=== PATIENT | male | born 1985 | race Caucasian/White ===

== ENCOUNTER → 2016-04-20 | Outpatient (CLI) | payer BC ==
[2016-04-20 12:44] LABS: ALT/SGPT 131 U/L (12-78); BLOOD UREA NITROGEN 15 mg/dl (7-18); BUN/CREATININE RATIO 16.2 (10-20); CARBON DIOXIDE 29 mmol/L (21-32); CHLORIDE 100 mmol/L (98-107); CHOLESTEROL 214 mg/dl (0-200); CREATININE 0.91 mg/dl (0.60-1.40); GLUCOSE 90 mg/dl (70-99); POTASSIUM 3.6 mmol/L (3.5-5.1); SODIUM 137 mmol/L (136-145); TRIGLYCERIDES 147 mg/dl (0-150); VERY LOW DENSITY LIPOPROT CALC 29 mg/dl
[2016-04-20 12:48] LABS: ALB/GLOB RATIO 1.2 (0.9-2); ALKALINE PHOSPHATASE 78 U/L (45-117); AST/SGOT 41 U/L (15-37); CHOLESTEROL/HDL RATIO 5.8; HDL CHOLESTEROL 37 mg/dl; LDL CHOLESTEROL CALCULATED 148 mg/dl
== END | disposition home or self-care (01) ==
LOC: C.LABBFT 09:07
PROVIDERS: ATTEND Nurse Practitioner
DX: R94.5 Abnormal results of liver function studies (principal); I10 Essential (primary) hypertension

== ENCOUNTER → 2016-05-05 | Outpatient (CLI) | payer BC ==
--- NOTE | 2016-05-05 08:59 | DIAGNOSTIC IMAGING REPORT ---
BILIARY ULTRASOUND CLINICAL HISTORY: Elevated LFTs COMPARISON STUDY: No previous studies for comparison. FINDINGS: The pancreas appears normal as visualized. There are no focal hepatic masses. There is borderline increase in hepatic echogenicity. There is no ductal dilatation. The gallbladder appears sonographically normal. The common bile duct measures 5 mm. There is no right-sided hydronephrosis. IMPRESSION: Borderline increase in hepatic echogenicity. Otherwise normal biliary ultrasound. No evidence of ductal dilatation. No hepatic masses identified. Electronically signed by: José Turner M.D. 05/05/2016 8:57 AM Dictated Date/Time: 05/05/2016 8:56 AM
[2016-05-05 10:17] LABS: FERRITIN 330.8 ng/ml (8.0-388.0); THYROID STIMULATING HORMONE 1.61 uIu/ml (0.300-4.500)
== END ==
LOC: C.ULTR 08:13
PROVIDERS: ATTEND Nurse Practitioner
DX: R94.5 Abnormal results of liver function studies (principal)

== ENCOUNTER → 2017-01-12 | Outpatient (CLI) | payer BC ==
--- NOTE | 2017-01-12 18:04 | DIAGNOSTIC IMAGING REPORT ---
TESTICULAR ULTRASOUND CLINICAL HISTORY: Scrotal pain and swelling COMPARISON STUDY: No previous studies for comparison. FINDINGS: The right testis measures 47 x 35 x 20 mm. The left testis measures 45 x 34 x 25 mm. No intratesticular masses are visualized. There are small hydroceles. There are bilateral scrotoliths. Right testicular echotexture is slightly heterogeneous. There is right testicular hyperemia. This could indicate an orchitis. Clinical correlation this regard is advocated. IMPRESSION: 1. No evidence of testicular torsion 2. No focal intratesticular masses 3. Slightly heterogeneous right-sided testicular echotexture with right-sided testicular hyperemia. This could indicate an orchitis. Clinical correlation in this regard is advocated Electronically signed by: José Turner M.D. 01/12/2017 6:02 PM Dictated Date/Time: 01/12/2017 5:59 PM
== END | disposition home or self-care (01) ==
LOC: C.ULTR 17:25
PROVIDERS: ATTEND Physician Assistant Medical
DX: N50.89 Other specified disorders of the male genital organs (principal); N50.819 Testicular pain, unspecified

== ENCOUNTER → 2017-05-14 | Outpatient (CLI) | payer BC ==
[2017-05-14 17:59] LABS: HEMATOCRIT 42.9 % (42-52); HEMOGLOBIN 15.3 g/dL (14.0-18.0); MEAN CORPUSCULAR HEMOGLOBIN 29.9 pg (25-34); MEAN CORPUSCULAR HGB CONC 35.7 g/dl (32-36); MEAN PLATELET VOLUME 9.9 fL (7.4-10.4); PLATELET COUNT 238 K/uL (130-400); RED CELL DISTRIBUTION WIDTH CV 12.6 % (11.5-14.5); RED CELL DISTRIBUTION WIDTH SD 38.2 fL (36.4-46.3); WHITE BLOOD COUNT 5.94 K/uL (4.8-10.8)
[2017-05-14 18:00] LABS: ALBUMIN 4.4 gm/dl (3.4-5.0); ALT/SGPT 165 U/L (12-78); BLOOD UREA NITROGEN 14 mg/dl (7-18); CALCIUM 9.7 mg/dl (8.5-10.1); CARBON DIOXIDE 31 mmol/L (21-32); CHOLESTEROL 192 mg/dl (0-200); CREATININE 0.98 mg/dl (0.60-1.40); GLUCOSE 88 mg/dl (70-99); POTASSIUM 4.2 mmol/L (3.5-5.1); SODIUM 138 mmol/L (136-145)
[2017-05-14 18:03] LABS: ALKALINE PHOSPHATASE 78 U/L (45-117); AST/SGOT 60 U/L (15-37); LDL CHOLESTEROL CALCULATED 129 mg/dl; TOTAL PROTEIN 8.2 gm/dl (6.4-8.2)
== END | disposition home health service (06) ==
LOC: C.LABBFT 12:09
PROVIDERS: ATTEND Nurse Practitioner
DX: R79.89 Other specified abnormal findings of blood chemistry (principal); I10 Essential (primary) hypertension; E78.00 Pure hypercholesterolemia, unspecified

== ENCOUNTER → 2017-06-15 | Outpatient (CLI) | payer BC ==
[2017-06-19 15:03] LABS: ANA SCREEN TC 249X POSITIVE (NEGATIVE)
[2017-06-20 13:33] LABS: ANA TITER 1:40 TITER (<1:40)
== END | disposition home or self-care (01) ==
LOC: C.LABBFT 15:12
PROVIDERS: ATTEND Registered Nurse
DX: K76.0 Fatty (change of) liver, not elsewhere classified (principal)

== ENCOUNTER → 2017-07-17 | Outpatient (CLI) | payer BC ==
[2017-07-22 17:52] LABS: MICROSOMAL AB <1 IU/ML (<9)
[2017-07-22 17:53] LABS: ANA SCREEN TC 249X NEGATIVE (NEGATIVE); ANTI-SS-A <1.0 NEG AI (<1.0 NEG); ANTI-SS-B <1.0 NEG AI (<1.0 NEG); ANTICARDIOLIPID AB IGA <11 APL (< = 11); COMPLEMENT C3 TC 44859W 136 MG/DL (90-180); COMPLEMENT C4 TC 44982E 29 MG/DL (16-47)
== END | disposition home or self-care (01) ==
LOC: C.LABBFT 14:10
PROVIDERS: ATTEND Registered Nurse
DX: R76.8 Other specified abnormal immunological findings in serum (principal)